=== PATIENT | female | born 1965 | race Caucasian/White ===

== ENCOUNTER 2016-12-03 15:45 | Emergency (ER) | payer OTHER ==
--- NOTE | ~2016-12-03 | CR63 ---
[facility]. [facility] A Service of [facility] / [facility] RADIOLOGY TEXT RESULTS PATIENT: LORE DUMONT LOCATION: SED : 69 UNIT #: [id number] AGE: [address]: JOSE DE JESUS MARIA SEX: F ORDER DR: [id number] [place] [id number] E MR#: [id number] Acc #: [id number] NAME: LORE DUMONT : 1965 SEX: F STUDY DATE/TIME: 12/03/2016 16:28 UNIT: SED ROOM: STUDY DESCRIPTION: CR Chest 2 View Attending Physician: Jose De Jesus Maria Aprn Ordering Physician: Maci Taylor Primary Care Physician: Precious Ryna A.P.R.N. MEDICAL IMAGING REPORT This report is preliminary unless electronic signature is present. EXAM 2 views chest 12/03/2016 HISTORY Cough. Congestion, runny nose. Duration 4-5 days. COPD, hypertension, anxiety, quit smoking 1999. TECHNIQUE PA and lateral radiographs the chest are presented. COMPARISON 10/29/2016 FINDINGS Bony structures are unremarkable. The heart and mediastinum are normal in size and contour. Stable slight hyperinflation of the lungs. This may be a reflection of underlying chronic airway disease. No evidence of acute pulmonary disease. No pleural effusion or pneumothorax. No suspicious nodule. The visualized upper abdomen is unremarkable. Dictated by... Tommy Chawla M.D. THIS IS AN ELECTRONICALLY VERIFIED REPORT Tommy Chawla M.D. at 12/04/2016 8:05 PM KIMBERLEE/dominic TD: 12/03/2016 18:57 JOB #: [id number] MEDICAL IMAGING REPORT Page 1 of 1
[~2016-12-03 15:45] MED LIST: ACID CONTROLLER20 MG PO; ALBUTEROL MININEB NEB; ALBUTEROL0.83 MG/ML INH; ALBUTEROL17 GM IH; ALBUTEROL17 GM INH; BACTRIM DS TABL1 TA1 PO; BENZONATATE PO; BREO ELLIPTA 11 EACH INH; CETIRIZINE HCL10 MG PO; CIPRO PO; DELTASONE20 MG PO; DERMACORT1 GM EXT; FOLIC ACID PO; FOLIC ACID1 MG PO; GUAIFENESIN600 M1; HYDROCODON-ACE1 EAC9 PO; KLONOPIN1 MG PO; LASIX PO; LASIX20 MG PO; LEVAQUIN PO; LEVOXYL100 MC1 PO; LISINOPRIL2.5 MG PO; MEDROL4 MG/DOSE- PO; MORGIDOX100 MG PO; MUCINEX SINUS-1 EACH PO; PAXIL10 MG PO; PREDNISONE PO; PREDNISONE10 MG PO; PROVENTIL INH0.5 ML NEB; PV NEURO VITE T1 TAB PO; STERAPRED5 MG/DOSE1 PO; SYMBICORT IH; SYMBICORT INH; SYNTHROID PO; TESSALON PERLE100 M1 PO; TRAZODONE PO; VISTARIL PO; VITAMIN D50000 UNIT PO; ZITHROMAX500 MG PO
[2016-12-03 16:19] LABS: URINE SOURCE CLEAN CATCH
[2016-12-03 16:22] LABS: URINE APPEARANCE CLEAR; URINE BLOOD 1+ (NEG); URINE COLOR YELLOW; URINE GLUCOSE NEG (NORM); URINE LEUKOCYTE ESTERASE NEG (NEG); URINE NITRATE NEG (NEG); URINE PROTEIN NEG (NEG); URINE UROBILINOGEN 0.2 MG/DL (NORM)
[2016-12-03 16:31] LABS: URINE BILIRUBIN NEG (NEG)
[2016-12-03 16:37] LABS: INFLUENZA A NEG (NEG); INFLUENZA B NEG (NEG)
[2016-12-03 16:37] LABS: MICRO INDICATED? YES; URINE KETONE 2+ (NEG)
[2016-12-03 16:39] LABS: CULTURE INDICATED? YES; URINE BACTERIA 3+ (NEG); URINE SQUAMOUS EPITHELIAL CELL OCCAS /[HPF]
[2016-12-03 16:40] LABS: URINE MUCUS PRESENT
== END 2016-12-03 17:19 | disposition home or self-care (01) ==
LOC: SED 15:45
PROVIDERS: Nurse Practitioner Family
DX: J06.9 Acute upper respiratory infection, unspecified (principal); J44.9 Chronic obstructive pulmonary disease, unspecified; Z87.891 Personal history of nicotine dependence
CPT/HCPCS: 71020; 81003; 87086; 87088; 87804; 94640; 99283

== ENCOUNTER 2017-02-09 16:47 | Emergency (ER) | payer OTHER ==
--- NOTE | ~2017-02-09 | CR72 ---
[facility] A Service of [facility] & [facility] RADIOLOGY TEXT RESULTS PATIENT: LORE DUMONT LOCATION: SED : [birth year] UNIT #: [id number] AGE: [address]: Bree Suazo MD SEX: F ORDER DR: [id number] [place] [id number] E MR#: [id number] Acc #: [id number] NAME: LORE DUMONT : 1965 SEX: F STUDY DATE/TIME: 02/09/2017 17:00 UNIT: SED ROOM: STUDY DESCRIPTION: CR Chest Single View Portable Attending Physician: Bree Suazo M.D. Ordering Physician: Bree Suazo M.D. Primary Care Physician: Precious Ryan A.P.R.N. MEDICAL IMAGING REPORT This report is preliminary unless electronic signature is present. EXAM Portable chest radiograph INDICATIONS Shortness of breath and cough for 3 days. FINDINGS Comparison is made to prior exam from December 03, 2016. Heart size is within normal limits. Lungs appear clear. I do not see any focal infiltrates. There is no pneumothorax or pleural effusion. No aggressive osseous abnormalities are seen. Dictated by... Helen Tafoya M.D. THIS IS AN ELECTRONICALLY VERIFIED REPORT Helen Tafoya M.D. at 02/10/2017 10:57 AM AFF/psc TD: 02/10/2017 00:36 JOB #: [id number] MEDICAL IMAGING REPORT Page 1 of 1
[2017-02-09] MEDS ORDERED: ALBUTEROL 0.5ML INH (17:07)
[2017-02-09 17:49] LABS: BASOPHIL# 0.1 X10e3 (0-0.3); BASOPHIL% 0.9 % (0-2.5); EOSINOPHIL# 0.4 X10e3 (0-0.7); EOSINOPHIL% 6.8 % (0.0-7.0); LYMPHOCYTE# 1.5 X10e3 (1.0-3.5); LYMPHOCYTE% 22.7 % (17.0-45.0); MEAN CELL VOLUME 91.4 FL (83-96); MEAN CORPUSCULAR HEMOGLOBIN 30.5 PG (28-34); MEAN CORPUSCULAR HGB CONC 33.4 g/dL (30-36); MEAN PLATELET VOLUME 7.5 FL (6.5-11.5); MONOCYTE# 0.4 X10e3 (0-1.0); MONOCYTE% 5.7 % (3.0-12.0); NEUTROPHIL# 4.1 X10e3 (1.5-7.1); NEUTROPHIL% 63.9 % (40-75); PLATELET COUNT 325 X10e3 (140-420); RED BLOOD COUNT 4.92 X10e (3.90-5.30); RED CELL DISTRIBUTION WIDTH 13.3 % (11.0-15.5); WHITE BLOOD COUNT 6.5 X10e3 (4.0-10.5)
[2017-02-09 17:54] LABS: DIFF IND NO
[2017-02-09 18:08] LABS: BUN/CREATININE RATIO 6.25; CALCIUM SERUM 9.1 mg/dL (8.4-10.2); CREATININE SERUM 0.8 mg/dL (0.6-1.4); GLOM FILT RATE Estimated 86.6 mL/min (>60); POTASSIUM 3.1 mmol/L (3.5-5.1)
== END 2017-02-09 19:34 | disposition home or self-care (01) ==
LOC: SED 16:47
PROVIDERS: Student in an Organized Health Care Education/Training Program
DX: F41.9 Anxiety disorder, unspecified (principal); R05 Cough; J44.9 Chronic obstructive pulmonary disease, unspecified; Z88.0 Allergy status to penicillin; Z88.5 Allergy status to narcotic agent; Z79.899 Other long term (current) drug therapy
CPT/HCPCS: 36415; 71010; 80048; 83880; 85025; 94640; 96374; 99284; J2270; J2930